=== PATIENT | female | born 1945 | race Caucasian/White ===

== ENCOUNTER 2016-10-13 20:44 | Emergency (ER) | payer MEDICARE ==
[2016-10-13 20:57] VITALS: O2SAT 97
--- NOTE | 2016-10-13 21:52 | ERPHSYRPT ---
- History of Present Illness Time Seen by Provider: 10/13/16 21:25 Source: patient Exam Limitations: clinical condition Patient Subjective Stated Complaint: Pt sts in the last week she used a tampon- like object made for overactive bladder. Sts that after that she had 4 days of vaginal bleeding. Sts bleeding is scant at this time, sts that she now has pain and discomfort in vagina. Sts "it feels swollen or like something has dropped down". Pt rates pain 0/10. Sts that it is most uncomfortable when sitting. Sts no urinary problems. Triage Nursing Assessment: Pt alert, oriented, answers all questions appropriately. Skin p/w/d, resps non-labored. Pt ambulatory to tx room, steady gait noted. Physician History: PATIENT WITH HISTORY OR URINARY INCONTINENCE, PLACED A URINARY TAMPOON INTO HER VAGINA 4 DAYS AGO FOR A FEW HOURS AND DEVELOPED PAIN PELVIC VAGINAL THEN REMOVED TAMPOON AND NOTICED VAGINAL BLEEDING FOR 2 DAYS. DENIES VAGINAL BLEEDING TODAY, URINARY SYMPTOMS FREQUENCY, URGENCY OR DYSURIA. Timing/Duration: yesterday Activites at Onset: none Quality: aching Onset Location: pelvic pain Pain Radiation: none Severity of Pain-Max: mild Severity of Pain-Current: mild Sexual intercourse history: non-contributory Modifying Factors: Improves With: other (SITTING) Allergies/Adverse Reactions: No Known Drug Allergies Allergy (Verified 10/13/16 21:13) Home Medications: Gabapentin [Neurontin] 400 mg PO TID PRN PRN 03/26/15 [History] Hydrocodone Bit/Acetaminophen [Carlisle 5-325 Tablet] 1 each PO QID PRN PRN [History] Polyethylene Glycol 3350 17 gm [Miralax Powder 17GM PACKET] 17 gm PO HS 06/15 [History] Furosemide [Lasix] 20 mg PO DAILY PRN PRN 06/18/15 [History] Loratadine 10 mg [Claritin 10 mg] 10 mg PO DAILY PRN PRN 06/18/15 [History ] Hx Tetanus, Diphtheria Vaccination/Date Given: No Hx Influenza Vaccination/Date Given: Yes Hx Pneumococcal Vaccination/Date Given: Yes - Review of Systems Constitutional: No Fever, No Chills Eyes: No Symptoms Ears, Nose, & Throat: No Symptoms Respiratory: No Symptoms, No Cough, No Dyspnea Cardiac: No Chest Pain, No Edema, No Syncope Abdominal/Gastrointestinal: No Symptoms, No Abdominal Pain, No Nausea, No Vomiting, No Diarrhea Genitourinary Symptoms: Vaginal Bleeding, No Dysuria Musculoskeletal: No Symptoms, No Back Pain, No Neck Pain Skin: No Rash Neurological: No Dizziness, No Focal Weakness, No Sensory Changes Psychological: No Symptoms Endocrine: No Symptoms All Other Systems: Reviewed and Negative - Past Medical History Pertinent Past Medical History: Yes Neurological History: No Pertinent History ENT History: No Pertinent History Cardiac History: No Pertinent History Respiratory History: Asthma, Bronchitis Endocrine Medical History: No Pertinent History Musculoskeletal History: Other GI Medical History: No Pertinent History History: No Pertinent History Psycho-Social History: No Pertinent History Female Reproductive Disorders: No Pertinent History - Past Surgical History Past Surgical History: Yes Neuro Surgical History: No Pertinent History Cardiac: No Pertinent History Respiratory: No Pertinent History Gastrointestinal: No Pertinent History Genitourinary: Other Musculoskeletal: No Pertinent History Female Surgical History: Hysterectomy Other Surgical History: BLADDER, breast surgery-3 nodes biopsy - Social History Smoking Status: Never smoker Exposure to second hand smoke: No Drug Use: none Patient Lives Alone: No - Nursing Vital Signs Nursing Vital Signs: Initial Vital Signs Temperature 99.0 F Temperature Source Oral Pulse Rate 96 Respiratory Rate 18 Blood Pressure [Left Thigh] 162/65 Pain Intensity 0 - Physical Exam General Appearance: no apparent distress, alert Eye Exam: PERRL/EOMI, eyes nml inspection Ears, Nose, Throat Exam: normal ENT inspection, TMs normal, pharynx normal, moist mucous membranes Neck Exam: normal inspection, non-tender, supple, full range of motion Respiratory Exam: normal breath sounds, lungs clear, No respiratory distress Cardiovascular Exam: regular rate/rhythm, normal heart sounds, normal peripheral pulses Gastrointestinal/Abdomen Exam: soft, normal bowel sounds, No tenderness, No mass Pelvic Exam: normal external exam, other (NO ADNEXAL TENDERNESS) Back Exam: normal inspection, normal range of motion, No CVA tenderness, No vertebral tenderness Extremity Exam: normal inspection, normal range of motion, pelvis stable Neurologic Exam: alert, oriented x 3, cooperative, 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 tested, normal mood/affect, sensation nml, No motor deficits Skin Exam: normal color, warm, dry Lymphatic Exam: No adenopathy SpO2 Interpretation: normal SpO2: 97 Oxygen Delivery: Room Air Ordered Tests: Active Orders 24 hr Category Date Time Status Clean Catch Urine Specimen STAT Care 10/13/16 21:55 Active CBC W DIFF Stat Lab 10/13/16 21:58 Completed UA W/ MICROSCOPIC Stat Lab 10/13/16 21:50 Completed Wet Prep Stat Lab 10/13/16 21:50 Completed Medication Summary Generic Name Dose Route Start Last Admin Trade Name Catrachito PRN Reason Stop Dose Admin Acetaminophen/Hydrocodone Bitart 2 tab 10/13/16 22:57 Carlisle 10/325 Mg Tablet PO 10/13/16 22:58 SENT HOME W/ PATIENT ONE Lab/Rad Data: Laboratory Result Diagrams 10/13/16 21:58 Laboratory Results 10/13/16 10/13/16 Range/Units 21:58 21:50 WBC 8.0 (4.0-10.5) K/mm3 RBC 4.99 (4.1-5.4) M/mm3 Hgb 13.9 (12.0-16.0) gm/dl Hct 42.6 (35-47) % MCV 85.4 (78-100) fl MCH 27.9 (26-32) pg MCHC 32.6 (32-36) g/dl RDW 13.9 (11.5-14.0) % Plt Count 271 (150-450) K/mm3 MPV 9.2 (6-9.5) fl Gran % 65.3 (36.0-66.0) % Lymphocytes % 23.6 L (24.0-44.0) % Monocytes % 8.4 (0.0-12.0) % Eosinophils % 2.3 (0.00-5.0) % Basophils % 0.4 (0.0-0.4) % Basophils # 0.03 (0-0.4) Ur Collection Type CLEAN CATCH Urine Color RED (YELLOW) Urine Appearance CLOUDY (CLEAR) Urine pH 8.5 (5-6) Ur Specific [place] 1.020 (1.005-1.025) Urine Protein >=300 (Negative) Urine Glucose (UA) NEGATIVE (NEGATIVE) mg/dL Urine Ketones NEGATIVE (NEGATIVE) Urine Nitrite NEGATIVE (NEGATIVE) Urine Bilirubin NEGATIVE (NEGATIVE) Urine Urobilinogen 0.2 (0-1) mg/dL Urine WBC (Auto) TRACE (NEGATIVE) Urine RBC (Auto) LARGE (0-5) Jose/ul Urine Microscopic RBC >100 (0-2) /HPF Urine Microscopic WBC 0-2 (0-5) /HPF Ur Epithelial Cells FEW (FEW) /HPF Urine Bacteria FEW (NEGATIVE) /HPF WBC (Wet Prep) Rare RBC (Wet Prep) Few Epi Cells (Wet Prep) Few Bacteria (Wet Prep) Few Clue Cells (Wet Prep) None Seen Trichomonas (Wet Prep) None Seen Budding Yeast (Wet Prp) None Seen Specimen Received [id number] - Progress Counseled pt/family regarding: lab results, diagnosis, need for follow-up - Departure Time of Disposition: 23:00 Departure Disposition: Home Clinical Impression: MICROHEMATURIA Condition: Stable Critical Care Time: No Referrals: MARIANNE ALMANZAR [Primary Care Provider] - Additional Instructions: NORCO 10/325 EVERY 4 HOURS FOR PAIN NEEDED. FOLLOWUP WITH YOUR UROLOGIST FOR EVALUATION OF BLOOD IN YOUR URINE. Prescriptions: Hydrocodone/APAP 10/325 mg [Carlisle 10/325 MG Tablet] 1 tab PO Q4H PRN PRN # 15 tablet PRN Reason: Pain
[2016-10-13 21:54] VITALS: PULSE 96
[2016-10-13 22:05] LABS: BASOPHIL % 0.4 % (0.0-0.4); Eosinophil % 2.3 % (0.00-5.0); Granulocytes % 65.3 % (36.0-66.0); Lymphocytes % 23.6 % (24.0-44.0); Mean Cell Volume 85.4 fl (78-100); Mean Corpuscular Hemoglobin 27.9 pg (26-32); Mean Platelet Volume 9.2 fl (6-9.5); Monocytes % 8.4 % (0.0-12.0); Platelet Count 271 K/mm3 (150-450); Red Blood Count 4.99 M/mm3 (4.1-5.4); Red Cell Distribution Width 13.9 % (11.5-14.0)
[2016-10-13 22:17] LABS: COMPLETE URINE MICROSCOPIC? YES; Collection Type CLEAN CATCH; Ph 8.5 (5-6)
[2016-10-13 22:18] LABS: Epithelial Cells FEW /HPF (FEW)
[2016-10-13 22:19] LABS: Bacteria FEW /HPF (NEGATIVE); WBC 0-2 /HPF (0-5)
[2016-10-13 22:25] LABS: Bacteria Few; Clue Cells None Seen; Trichomonas None Seen; Yeast None Seen
[2016-10-13 22:48] VITALS: BP 162/65
[2016-10-13] MEDS ORDERED: Norco 10/325 MG Tablet PO ONE (22:57)
[2016-10-13] MEDS ORDERED: Norco 10/325 MG Tablet ONE (23:01)
[2016-10-13 23:38] LABS: CHLAMYDIA DNA NEGATIVE
== END 2016-10-13 23:15 | disposition home or self-care (01) ==
LOC: ED 20:44
DX: R19.7 Diarrhea, unspecified (principal); R42 Dizziness and giddiness
CPT/HCPCS: 36415; 81000; 85025; 87210; 87490; 87590; 99283; A9270-GY

== ENCOUNTER 2016-12-13 21:46 | Emergency (ER) | payer MEDICARE ==
[2016-12-13] MEDS ORDERED: Rocephin 1000 MG INJ IM ONE (21:59)
[2016-12-13] MEDS ORDERED: Rocephin 1000 MG INJ ONE (22:03)
[2016-12-13] MEDS ORDERED: XYLOCAINE 1% HCL 20 ML MDV ONE (22:03)
--- NOTE | 2016-12-13 22:03 | ERPHSYRPT ---
- History of Present Illness Time Seen by Provider: 12/13/16 22:00 Source: patient Exam Limitations: no limitations Patient Subjective Stated Complaint: pt reports redness et swelling to right lower leg-reports it is uncormfortable more than painful Triage Nursing Assessment: pt pink warm et dry-redness et swelling to lright lower elg noted-no draiange Physician History: pt reports redness et swelling to right lower leg-reports it is uncormfortable more than painful Method of Injury: unknown Occurred: just prior to arrival Severity of Pain-Max: none Severity of Pain-Current: mild Lower Extremities Pain: leg: right (redness and erythemaposterior lower leg) Modifying Factors: Improves With: nothing Associated Symptoms: none Allergies/Adverse Reactions: No Known Drug Allergies Allergy (Verified 12/13/16 21:54) Home Medications: Gabapentin [Neurontin] 400 mg PO TID PRN PRN 03/26/15 [History] Furosemide [Lasix] 20 mg PO DAILY PRN PRN 06/18/15 [History] Loratadine 10 mg [Claritin 10 mg] 10 mg PO DAILY PRN PRN 06/18/15 [History ] Hx Tetanus, Diphtheria Vaccination/Date Given: No Hx Influenza Vaccination/Date Given: Yes Hx Pneumococcal Vaccination/Date Given: Yes Immunizations Up to Date: Yes - Review of Systems Constitutional: No Fever, No Chills Eyes: No Symptoms Ears, Nose, & Throat: No Symptoms Respiratory: No Cough, No Dyspnea Cardiac: No Chest Pain, No Edema, No Syncope Abdominal/Gastrointestinal: No Abdominal Pain, No Nausea, No Vomiting, No Diarrhea Genitourinary Symptoms: No Dysuria Musculoskeletal: No Back Pain, No Neck Pain Skin: Cellulitis, No Rash Neurological: No Dizziness, No Focal Weakness, No Sensory Changes Psychological: No Symptoms Endocrine: No Symptoms All Other Systems: Reviewed and Negative - Past Medical History Pertinent Past Medical History: Yes Neurological History: No Pertinent History ENT History: No Pertinent History Cardiac History: No Pertinent History Respiratory History: Asthma, Bronchitis Endocrine Medical History: No Pertinent History Musculoskeletal History: Other GI Medical History: No Pertinent History History: No Pertinent History Psycho-Social History: No Pertinent History Female Reproductive Disorders: No Pertinent History - Past Surgical History Past Surgical History: Yes Neuro Surgical History: No Pertinent History Cardiac: No Pertinent History Respiratory: No Pertinent History Gastrointestinal: No Pertinent History Genitourinary: Other Musculoskeletal: No Pertinent History Female Surgical History: Hysterectomy Other Surgical History: BLADDER, breast surgery-3 nodes biopsy - Social History Smoking Status: Never smoker Exposure to second hand smoke: No Drug Use: none Patient Lives Alone: No - Nursing Vital Signs Nursing Vital Signs: Initial Vital Signs Temperature 96.7 F Temperature Source Oral Pulse Rate 96 Respiratory Rate 18 Blood Pressure [Right Arm] 153/80 Pain Intensity 2 - Physical Exam General Appearance: no apparent distress Eyes, Ears, Nose, Throat Exam: normal ENT inspection Neck Exam: normal inspection Legs Exam: right leg: soft tissue tenderness (righr lower leg) SpO2: 96 Oxygen Delivery: Room Air - Course Nursing assessment & vital signs reviewed: Yes Ordered Tests: Medication Summary Discontinued Medications Generic Name Dose Route Start Last Admin Trade Name Freq PRN Reason Stop Dose Admin Ceftriaxone Sodium 1,000 mg 12/13/16 21:59 Rocephin 1000 Mg Inj IM 12/13/16 22:00 STAT ONE - Progress Progress: unchanged Counseled pt/family regarding: diagnosis, need for follow-up - Departure Time of Disposition: 22:03 Departure Disposition: Home Clinical Impression: Cellulitis and abscess of right leg Condition: Stable Critical Care Time: No Referrals: DOCTOR,NO FAMILY [Primary Care Provider] - Instructions: Cellulitis -- Adult Additional Instructions: Please follow the instructions given to you. Please take your medication as prescribed if given. If symptoms recur or get worse, come back to the emergency room if you cannot reach your primary care physician, or call your primary care physician for an appointment. Again if your symptoms get worse, come back to the emergency room. Thanks for visiting emergency room, and let us take care of you. Prescriptions: Cephalexin Mh 500 mg [Keflex 500 mg] 500 mg PO Q6H #40 capsule
[2016-12-13 22:25] VITALS: BP 137/88; PULSE 75; O2SAT 97
== END 2016-12-13 22:25 | disposition home or self-care (01) ==
LOC: ED 21:46
DX: L03.115 Cellulitis of right lower limb (principal); L02.415 Cutaneous abscess of right lower limb
CPT/HCPCS: 96372; 99282; 99284; J0696

== ENCOUNTER 2018-11-16 05:56 | Day surgery (SDC) | payer MEDICARE ==
[2018-11-16] MEDS ORDERED: Ketamine HCl 50 MG/ML IV ONE (05:57)
[2018-11-16] MEDS ORDERED: Romazicon 0.5 MG/5 ML Injection IV ONE (05:57)
[2018-11-16] MEDS ORDERED: SUBLIMAZE 100 MCG/2 ML IV ONE (05:57)
[2018-11-16] MEDS ORDERED: DIPRIVAN 200 MG/20 ML IV ONE (05:57)
[2018-11-16] MEDS ORDERED: Lactated Ringers 1,000 ML IV SCH (06:30)
--- NOTE | 2018-11-16 08:33 | OP ---
SURGERY DATE/TIME: 11/16/2018 0740 PREOPERATIVE DIAGNOSIS: Screening exam. POSTOPERATIVE DIAGNOSIS: Ascending colon polyps and sigmoid diverticulosis. PROCEDURE: Colonoscopy with hot snare polypectomy and cold forceps biopsy. SURGEON: Dr. Joseph. ANESTHESIA: MAC. Medications given by anesthesia department. HISTORY: The patient is a 73 year-old white female presenting now for screening examination. She reports she had a previous colonoscopy years ago. She was reappraised of the risks of the procedure including the risk of perforation, phlebitis, untoward reaction to medication, bleeding and missed lesions. The patient verbalized her understanding and desired to have the procedure performed. DESCRIPTION OF PROCEDURE: The patient was given the medications by the anesthesia department. She had continuous pulse oximetry, ECG monitoring, intermittent blood pressure monitoring and tidal CO2 monitoring during the examination. She was placed in the left lateral decubitus position. A digital rectal examination was performed and revealed normal anal sphincter tone and no masses. The flexible Olympus pediatric colonoscope was used to intubate the rectum. A view of the colon was developed sequentially to the cecum. Upon insertion and withdrawal was noted a polyp that was sessile in the ascending colon measuring approximately 1.5 cm in diameter, this was removed using the hot polypectomy snare and retrieved for pathologic evaluation. There was also a smaller polyp near the same area which is biopsied using cold biopsy forceps. There was also noted sigmoid diverticulosis otherwise no other mucosal lesions were encountered. The scope was removed from the patient who tolerated the procedure well and was sent back to OP recovery in good condition. The prep was noted to be fair to good.
[2018-11-16 09:34] VITALS: O2SAT 98
[2018-11-16 09:35] VITALS: BP 155/86; PULSE 61
== END 2018-11-16 09:25 | disposition home or self-care (01) ==
LOC: SDC 05:56
PROVIDERS: ATTEND Family Medicine
DX: Z12.11 Encounter for screening for malignant neoplasm of colon (principal); D12.2 Benign neoplasm of ascending colon; K57.30 Diverticulosis of large intestine without perforation or abscess without bleeding
CPT/HCPCS: 99100; J2704; J3010

== ENCOUNTER 2024-05-30 05:39 | Day surgery (SDC) | payer MEDICARE ==
[2024-05-30] MEDS: Decadron 4 MG PO ONE (06:35)
[2024-05-30] MEDS: TYLENOL EXTRA STRENGTH 500 MG PO ONE (06:35)
[2024-05-30] MEDS: celeBREX 100 MG PO ONE (06:37)
[2024-05-30] MEDS: NEURONTIN PO ONE (06:38)
[2024-05-30] MEDS: CEFAZOLIN 2 GM/100 ML NaCl 2 GM/100 ML IVPB IV SCH (06:38)
[2024-05-30] MEDS: TRANEXAMIC 1,000 MG/100ML-NACL 1,000 MG/100 ML PIGGYBACK IV ONE (06:38)
[2024-05-30] MEDS: Lactated Ringers 1,000 ML IV SCH (06:39)
[2024-05-30] MEDS ORDERED: Lactated Ringers 1,000 ML IV ONE ×2 (06:47→09:08)
[2024-05-30] MEDS ORDERED: VANCOCIN IV SCH (07:00)
[2024-05-30] MEDS ORDERED: SODIUM CHLORIDE 0.9% IV SCH (07:00)
[2024-05-30] MEDS: VANCOMYCIN 1.25 GM/250 ML BAG 1.25 GM/250 ML PIGGYBACK IV SCH (07:06)
[2024-05-30] MEDS ORDERED: Naropin 0.5% 30 ML VIAL*** 123.125 MG, TORAdol 30 mg Injection*** 15 MG, Epinephrine Pr... IV ONE (07:30)
[2024-05-30] MEDS ORDERED: Versed 2 MG/2 ML Injection ONE (07:36)
[2024-05-30] MEDS ORDERED: SUBLIMAZE 100 MCG/2 ML ONE (07:36)
[2024-05-30] MEDS ORDERED: Marcaine 0.5%/Epinephrine 10 ML ONE (07:38)
[2024-05-30] MEDS ORDERED: MARCAINE 0.25% PF/ EPI 1:200,000 ONE (07:40)
[2024-05-30] MEDS ORDERED: Xylocaine-Mpf 2% 5 Ml Vial ONE (07:44)
[2024-05-30] MEDS ORDERED: DIPRIVAN 200 MG/20 ML IV ONE ×2 (08:10→09:10)
[2024-05-30] MEDS ORDERED: VANCOCIN INJECTION IV ONE (08:24)
[2024-05-30] MEDS ORDERED: PHENYLEPHRINE HCL ONE (08:47)
--- NOTE | 2024-05-30 10:44 | XRAY ---
Indication: Follow-up total knee replacement. Comparison: None Portable AP/crosstable lateral left knee demonstrates total knee arthroplasty with intact articulation/prosthesis and postoperative soft tissue swelling, soft tissue emphysema, and anterior cutaneous judd. Incidental osteopenia. No other bony, articular, or soft tissue abnormalities.
[2024-05-30] MEDS ORDERED: TYLENOL 325 MG PO PRN (11:41)
[2024-05-30] MEDS ORDERED: ZOFRAN ODT 4 MG PO PRN (11:43)
[2024-05-30] MEDS ORDERED: Sodium Chloride 0.9% 1000 ML 1,000 ML IV SCH (11:45)
[2024-05-30] MEDS ORDERED: PLAVIX Tablet PO SCH (11:45)
[2024-05-30 11:51] VITALS: O2SAT 95
[2024-05-30] MEDS ORDERED: ECOTRIN 81 MG PO SCH (12:00)
[2024-05-30] MEDS ORDERED: ZOCOR 20MG PO SCH (12:00)
[2024-05-30 15:17] VITALS: BP 154/69; PULSE 78; RESP 18; TEMP 97.5
[2024-05-30] MEDS: Oxy-IR 5 MG PO PRN (15:32)
--- NOTE | 2024-05-31 07:52 | OP ---
SURGERY DATE/TIME: 05/30/2024 [id number] PREOPERATIVE DIAGNOSIS: Left knee degenerative joint disease. POSTOPERATIVE DIAGNOSIS: Left knee degenerative joint disease. PROCEDURE: Left total knee replacement. SURGEON: Ferdinand Argueta MD IMPLANTS: Tom Persona cruciate-retaining femoral component size 6, tibial baseplate size D, 10 mm thick polyethylene size D medial congruent, and a size 38 patella which was 8.5 mm thick. ESTIMATED BLOOD LOSS: 100 mL. FLUIDS: Per the anesthesia record. SPECIMENS: None. DRAINS: None. COMPLICATIONS: None. INDICATIONS: The patient is an 79-year-old white female with painful left knee refractory to conservative care. She wishes to have this replaced for pain relief. FINDINGS: About a 1 cm cyst in the medial femoral condyle. There was severe tricompartmental DJD with varus deformity. DESCRIPTION OF PROCEDURE AND FINDINGS: The patient was seen in the holding room. We identified the left knee as correct. This was initialed by me. She had vancomycin and Kefzol preoperatively as well as 1000 mg of tranexamic acid. She had a nerve block in the holding area and then was taken surgery where she had spinal anesthesia and she was then positioned supine with a bump under her left hip, had sterile and prep drape of left lower extremity. Time-out was performed by me. Tourniquet was inflated around the upper thigh to 250 mmHg. Total tourniquet time was 36 minutes. A midline incision was made from just medial to the tibial tubercle to about 6 cm above the superior pole of the patella. A medial parapatellar approach was made, splitting the quadriceps 10% and 90%. Patella was everted and fat pad was excised about 50%. Osteophytes were removed. The patella was measured at 22 mm thickness. It was then reamed down to 13 mm thickness with a Tom reamer. Later, the drill holes were drilled out with a drill clamp guide for a 32 patella. The drills were drilled down the center of the femoral and tibial canals. Guide ermias was placed on the femoral canal with the guide set at 5 degrees of valgus for a left knee. An 8 mm distal cut was made. The tibia was then prepared with intramedullary ermias, taking 5 mm off the medial side in neutral varus with a 7-degree posterior slope with external alignment to verify intramedullary alignment. The femoral sizing guide was then applied. Judging off the guide as well as the transepicondylar axis and [place]ites[place] line, the guide was set in 3 degrees of external rotation, pinned in place, and then the anterior and posterior cuts as well as anterior chamfer and posterior chamfer cuts were made. The menisci were excised. The flexion and extension gaps were checked and were equal for a 10 mm spacer. The tibial baseplate was then applied and pinned in place in line with the medial third of the tibial tubercle. The trial 6 femur was applied and then a 10 mm spacer was placed. The knee could flex from about 0 to 100 degrees, patella tracking midline. The patella button was placed on the patella to check tracking. The lug nuts were then drilled out on the femur. The cyst on the medial side was curetted out. The tibia was drilled out with a drill and the punch. The femoral canal was plugged with a bone plug. Then, 30 mL of 0.5% ropivacaine with 30 mL of ketorolac and 20 mL of saline was mixed and then injected circumferentially around the capsule using 60 mL in total. The bony surfaces were irrigated and dried. Two batches of Tom cement were mixed with 1 g of vancomycin due to MRSA positivity. The powders were mixed first and then the liquid was mixed under vacuum conditions. This was then placed on the bony surfaces and on the components. The cyst was filled with cement. The tibial component was applied first then the femoral component. The knee was put in full extension with a 10 mm trial spacer. The patella button was held with a clamp and then tourniquet was released. Hemostasis was obtained with electrocautery. When all cement had hardened, excess cement was trimmed off with an osteotome. The knee was thoroughly irrigated and then the true medial congruent polyethylene was locked into the tray with same range of motion and good stability in flexion and extension, patella tracking midline. The medial parapatellar approach was closed with alternating #2 Ethibond interrupted suture and a running #1 Stratafix suture. The subcutaneous tissue was closed with interrupted 2-0 Vicryl and the skin with judd. Sterile dressings applied. PLAN: Patient to be weightbearing as tolerated. She will go home if comfortable today. She may remove the dressing postop day 5 and shower then. She will return in 10 to 12 days for staple removal. She will go home on Percocet for pain, doxycycline for 5 days, and aspirin 325 mg daily for 3 weeks for DVT prophylaxis. She will have outpatient therapy.
== END 2024-05-30 15:42 | disposition home or self-care (01) ==
LOC: SDC 05:39 → MED SURG 11:03 → SDC 15:42
PROVIDERS: ATTEND Orthopaedic Surgery
DX: M17.12 Unilateral primary osteoarthritis, left knee (principal)
CPT/HCPCS: 73560; J0690; J2250; J2371; J2704; J3010; J3370; A9270-GY